=== PATIENT | male | born 1990 | race Caucasian/White ===

== ENCOUNTER 2022-05-07 03:29 | Observation (INO) ==
[2022-05-07] MEDS ORDERED: Piperacillin/Tazobactam 3.375 GM in 0.9 % Sodium Chloride Mini Bag 100 ML IVPB SCH (12:00)
[2022-05-07] MEDS ORDERED: 0.9 % Sodium Chloride 1,000 ML IVC SCH ×2 (12:00→20:06)
[2022-05-07] MEDS ORDERED: 0.9 % Sodium Chloride 1,000 ML ONE (12:01)
[2022-05-07] MEDS ORDERED: Ondansetron ODT 4 MG TAB.RAPDIS SL PRN ×2 (13:29→20:06)
[2022-05-07] MEDS ORDERED: Ketorolac 30 MG/ML VIAL IVP PRN (13:29)
[2022-05-07] MEDS ORDERED: *HR* Propofol 200 MG/20 ML VIAL IVP ONE (17:27)
[2022-05-07] MEDS ORDERED: *HR* Midazolam HCl 2 MG/2 ML VIAL ONE (17:27)
[2022-05-07] MEDS ORDERED: *HR* Succinylcholine 200 MG/10 ML VIAL IVP ONE (17:27)
[2022-05-07] MEDS ORDERED: Lidocaine -MPF 2% 2 ML VIAL ONE (17:27)
[2022-05-07] MEDS ORDERED: Lidocaine HCL 4 ML Topical Solution (Laryng-O-Jet Kit Sterile Pak) TP ONE (17:27)
[2022-05-07] MEDS ORDERED: *HR* Rocuronium Bromide 50 MG/5 ML VIAL ONE (17:27)
[2022-05-07] MEDS ORDERED: Ondansetron 4 MG/2 ML VIAL ONE (17:27)
[2022-05-07] MEDS ORDERED: *HR* FentaNYL (PF) 100 MCG/2 ML VIAL ONE (17:27)
[2022-05-07] MEDS ORDERED: CefOXitin 2,000 MG VIAL ONE (17:39)
[2022-05-07] MEDS ORDERED: Dexmedetomidine HCl 0 MCG/0 ML MLS IVC ONE (17:40)
[2022-05-07] MEDS ORDERED: *HR* HYDROmorphone PF 0.5 MG/0.5 ML SYRINGE IVP PRN (18:11)
[2022-05-07] MEDS ORDERED: Acetaminophen IV 1,000 MG/100 ML BAG IVPB ONE ×2 (18:35→18:37)
[2022-05-07] MEDS ORDERED: *HR* HYDROMORPHONE 2 MG/ML VIAL ONE (18:46)
[2022-05-07] MEDS ORDERED: Sugammadex Sodium 200 MG/2 ML VIAL IV ONE ×2 (19:02→19:12)
[2022-05-07] MEDS ORDERED: Ketorolac 30 MG/ML VIAL ONE (19:07)
[2022-05-07] MEDS ORDERED: *HR* Vasopressin 20 UNIT/ML VIAL ONE (19:30)
[2022-05-07] MEDS ORDERED: *HR* OxyCODONE Immed Rel 5 MG TABLET PO PRN (20:06)
[2022-05-07 23:32] VITALS: O2SAT 96
[2022-05-08 07:19] VITALS: BP 125/75; PULSE 65; TEMP 98.3
[2022-05-08] MEDS ORDERED: Ibuprofen 400 MG TABLET PO ONE (08:45)
== END 2022-05-08 10:49 | disposition home or self-care (01) ==
LOC: 3BNU
PROVIDERS: ADMIT Surgery; ATTEND Surgery